=== PATIENT | male | born 1945 | race Caucasian/White ===

== ENCOUNTER 2018-06-04 10:37 | Outpatient (CLI) | payer MEDICARE | END 2018-06-04 10:38 | disposition home or self-care (01) | LOC: CTENTCT 10:37 | PROVIDERS: ATTEND Otolaryngology Plastic Surgery within the Head & Neck | DX: J34.2 Deviated nasal septum (principal) | CPT/HCPCS: 70486 ==

== ENCOUNTER 2018-07-22 06:56 | Inpatient (IN) | payer MEDICARE ==
[2018-07-22 07:13] LABS: #Basophils 0.1 thou/uL (0.0-0.2); #Eosinphils 0.3 thou/uL (0.0-0.7); #Lymphocytes 3.4 thou/uL (1.20-3.40); #Monocytes 0.6 thou/uL (0.11-0.59); %Basophils 1.3 % (0.0-1.0); %Eosinophils 3.3 % (0.0-10.0); %Lymphocytes 40.6 % (21.0-51.0); %Monocytes 6.8 % (0.0-10.0); Hemoglobin 16.5 g/dL (14.0-18.0); Mean Corpuscular Hemoglobin 30.3 pg (27.0-31.0); Mean Corpuscular Volume 89.1 fL (78.0-98.0); Mean Platelet Volume 6.7 fL (7.4-10.4); Platelet Count 200 thou/uL (130-400); RBC Distribution Width 11.7 % (11.5-14.5); Red Blood Cell (RBC) Count 5.45 mill/uL (4.70-6.10); White Blood Cell (WBC) Count 8.4 thou/uL (4.8-10.8)
[2018-07-22 07:24] LABS: ALT (SGPT) 14 U/L (8-55); AST (SGOT) 15 U/L (5-34); Albumin 4.2 g/dL (3.4-4.8); Alkaline Phosphatase 66 U/L (40-150); Anion Gap 14 mmol/L (10-20); BUN (Urea Nitrogen) 16 mg/dL (8.4-25.7); Bilirubin, Total 0.7 mg/dL (0.2-1.2); Calc. Creatinine Clearance 0 mL/min (70-130); Calcium 9.8 mg/dL (7.8-10.44); Carbon Dioxide 27 mmol/L (23-31); Chloride 106 mmol/L (98-107); Estimated GFR-MDRD 79; Globulin 2.8 g/dL (2.4-3.5); Glucose 117 mg/dL (83-110); Potassium 4.3 mmol/L (3.5-5.1); Sodium 143 mmol/L (136-145)
[2018-07-22] MEDS ORDERED: Aspirin 325 MG TAB ONE (07:37)
--- NOTE | 2018-07-22 07:49 | CT ---
CT BRAIN WITHOUT CONTRAST: Date: 07/22/18 HISTORY: Stroke protocol. Left-sided weakness. COMPARISON: None. FINDINGS: Old left basal ganglia lacunar infarction. No acute territorial infarct or hemorrhage. No midline tatiana ft or mass effect. Calvarium is intact. Paranasal sinuses and mastoids are clear. IMPRESSION: No acute intracranial abnormality. POS: SYED
--- NOTE | 2018-07-22 07:51 | CT ---
CT ANGIOGRAM HEAD WITH CONTRAST: Date: 07/22/18 HISTORY: Stroke protocol. COMPARISON: None. FINDINGS: CT angiogram of the head performed after the intravenous administration of contrast. 3D rendering pro vided. The [place] of [place] patent. No stenosis, thrombosis, nor aneurysm formation. There is normal variant left CATH LAB RADIOLOGY TECHNICIAN. IMPRESSION: No acute intracranial abnormality. No stenosis, thrombosis, nor aneurysm formation. POS: CARLA
[2018-07-22 07:57] LABS: Bilirubin Negative (Negative); Blood, Urine Trace (Negative); Clarity Clear (Clear); Glucose, Urine (Dipstick) Negative (Negative); Leukocyte Negative (Negative); Nitrite Negative (Negative); Protein, Urine (Dipstick) Negative (Neg-Trace); Urobilinogen 0.2 mg/dL (0.2-1.0)
[2018-07-22 08:02] LABS: Bacteria/HPF None Seen HPF (None Seen); Hyaline Casts/LPF NONE SEEN LPF (0-3 Hyaline); RBC/HPF 0-3 HPF (0-3); Squamous Epithelial None Seen HPF (0-3); WBC/HPF 0-3 HPF (0-3)
[2018-07-22] MEDS ORDERED: Ondansetron ODT 4 MG TAB PO PRN (10:04)
[2018-07-22] MEDS ORDERED: Ondansetron HCl/PF 4 MG/2 ML Vial IVP PRN ×2 (10:04→16:47)
[2018-07-22] MEDS ORDERED: Acetaminophen 325 MG TAB PO PRN ×2 (10:05→16:47)
[2018-07-22 10:29] VITALS: BMI 30.4
[2018-07-22] MEDS ORDERED: Prevnar 13-Val Conj/PF 0.5 ML SYRINGE IM ONE (11:15)
[2018-07-22] MEDS ORDERED: Enoxaparin Sodium 40 MG/0.4 ML SYRINGE SC SCH (16:47)
[2018-07-22] MEDS ORDERED: HYDROcodone/Acetaminophen 5/325 mg Tablet PO PRN ×2 (16:47)
[2018-07-22] MEDS ORDERED: Dextrose 5% in Water 1,000 ML IV PRN (16:47)
[2018-07-22] MEDS ORDERED: Dextrose 50% Abboject 50 ML SYRINGE SLOW IVP PRN (16:47)
[2018-07-22] MEDS ORDERED: HumaLOG 300 UNITS/3 ML VIAL SC PRN ×2 (16:47)
--- NOTE | 2018-07-22 17:47 | MRI ---
NONCONTRAST ENHANCED MRI IMAGES OF THE BRAIN 07/22/18 HISTORY: Right MCA distribution area stroke. Multiplanar and multisequence noncontrast enhanced MRI images of the brain obtained. Images demonstrate an area of increased T2 signal and diffusion restriction measuring 1.4 x 1.1 cm in the right thalamus extending into the posterior limb of the right internal capsule. This is compatib le with a small areas of right thalamic stroke. No other areas of significant diffusion restriction s een. Normal flow voids seen in the major intracranial vessels including the ICA, MCA, SHIVAM as well as verte brobasilar arteries and posterior cerebral vessels. Incidentally noted small right sided maxillary sinus mucosal thickening seen. IMPRESSION: Acute right thalamic and posterior limb internal capsule stroke. POS: SYED
[2018-07-22] MEDS: Labetalol HCl 100 MG/20 ML VIAL SLOW IVP PRN (18:33)
--- NOTE | 2018-07-22 20:20 | ULT ---
BILATERAL CAROTID DUPLEX ULTRASOUND: 07/22/18 HISTORY: Right middle cerebral artery infarct. Real time imaging of the right and left carotid system was performed. This shows plaque formation of the origin of both internal carotid arteries. On the right side, peak systolic velocity of the common carotid are 104 cm/s. Internal carotid veloci ties 134 cm/s. External carotid velocities of 113 cm/s. On the left side, peak systolic velocity of the common carotid are 107 cm/s. Internal carotid velocit ies 107 cm/s. External carotid velocities of 116 cm/s. Vertebral flow is antegrade bilaterally. IMPRESSION: 1. Peak systolic velocity measurements of the right internal carotid artery that would suggest 5 0 to 69% narrowing; however, diastolic velocity measurements and ratios all would suggest less than 5 0% narrowing. 2. No significant stenosis of the left internal carotid artery. POS: SYED
[2018-07-22] MEDS: Famotidine 20 MG TAB PO SCH (20:22)
[2018-07-22] MEDS: Atorvastatin Calcium 40 MG TAB PO SCH (20:22)
--- NOTE | 2018-07-23 05:13 | CON ---
DATE OF CONSULTATION: 07/22/2018 REFERRING PROVIDER: Dr. Cedric Brower. REASON FOR CONSULTATION: Left-sided numbness and weakness. HISTORY OF PRESENT ILLNESS: Mr. Duong is a pleasant 72-year-old male who has been considered for evaluation of left-sided numbness and weakness. The patient reports that this morning, he woke up at 6:30 a.m. and noticed sudden onset of numbness on his left upper and left lower extremity. He had gone to sleep at 11:00 last night without any symptoms. He initially thought the symptoms may be due to him sleeping well and trying to work him up, however, the symptoms continued to be present after awakening up for an hour or so, he decided to present to the [facility]. He reports that he has difficulty with lifting left arm, and feels heaviness in his left arm. He denies any headache, vision changes, diplopia, dysarthria, dysphagia, difficulty balance or walking. PAST MEDICAL HISTORY: Significant for hypertension, history of atrial fibrillation, hyperlipidemia. PAST SURGICAL HISTORY: Significant for herniated disk surgery and ablation. SOCIAL HISTORY: He drinks less than 5 drinks per day. He denies smoking. He denies illicit drug use. FAMILY HISTORY: Noncontributory. CURRENT MEDICATIONS: Please review MAR. ALLERGIES: Include CODEINE. REVIEW OF SYSTEMS: As mentioned above in HPI, otherwise negative. PHYSICAL EXAMINATION: VITAL SIGNS: Blood pressure of 185/83, pulse of 71, temperature of 97.5, respirations of 16, O2 sats 95% on room air. GENERAL: A well-developed, well-nourished male in no apparent distress. RESPIRATORY: Clear to auscultation bilaterally. CARDIOVASCULAR: Regular rate and rhythm. NEUROLOGIC: Mental status: The patient is awake, alert, oriented x3. Speech and language: Fluent speech. Cranial nerves: Pupils are 3 mm and reactive. Visual andujar are intact. Extraocular muscles are intact. No nystagmus noted. Face is symmetric. Tongue and uvula midline. Motor exam showed normal tone and bulk with a 5/5 strength in the right upper and lower extremity. There has 4+/5 strength in the left upper extremity and 5/5 strength in the left lower extremity. He has a pronator drift on the left upper extremity. Sensory: Diminished sensation in the left upper and left lower extremity to light touch. Deep tendon reflexes, brisk reflexes in both upper and lower extremities. Babinski: Plantar responses flexion on the right and equivocal on the left. Coordination intact to [id number] and finger tapping bilaterally. LABORATORY DATA: Reviewed, which included CBC, CMP, urinalysis which is all essentially normal. IMAGING STUDIES: MRI brain without contrast was reviewed, which showed small acute right thalamic ischemic infarct. CT angio of the head was reviewed, which showed no acute intracranial abnormality. Carotid Doppler results were reviewed, which showed hemodynamically significant stenosis on both sides. IMPRESSION: 1. Acute right thalamic ischemic infarct. 2. Left-sided numbness and weakness correlate to #1. 3. Malignant hypertension. PLAN: Mr. Duong is a pleasant 72-year-old male who presented with an acute onset of left-sided numbness and weakness. He is found to have small acute right thalamic ischemic infarct. This is likely secondary to poorly controlled blood pressure. At this time, I will recommend continuing PT, OT. I would recommend obtaining echocardiogram and lipid profile. I would recommend continuing on aspirin 325 mg daily for secondary stroke prevention. No further neurological workup needed from my standpoint. RONALDD
[2018-07-23 06:19] LABS: #Eosinphils 0.2 thou/uL (0.0-0.7); #Lymphocytes 1.6 thou/uL (1.20-3.40); #Monocytes 0.4 thou/uL (0.11-0.59); #Neutrophils 3.5 thou/uL (1.40-6.50); %Basophils 0.8 % (0.0-1.0); %Eosinophils 3.1 % (0.0-10.0); %Monocytes 7.2 % (0.0-10.0); Hemoglobin 14.6 g/dL (14.0-18.0); Mean Corpuscular HGB CONC 33.3 g/dL (32.0-36.0); Mean Corpuscular Hemoglobin 30.9 pg (27.0-31.0); Mean Corpuscular Volume 92.7 fL (78.0-98.0); Mean Platelet Volume 7.2 fL (7.4-10.4); Platelet Count 177 thou/uL (130-400); RBC Distribution Width 12.5 % (11.5-14.5); Red Blood Cell (RBC) Count 4.73 mill/uL (4.70-6.10); White Blood Cell (WBC) Count 5.7 thou/uL (4.8-10.8)
[2018-07-23 06:27] LABS: Anion Gap 11 mmol/L (10-20); BUN (Urea Nitrogen) 13 mg/dL (8.4-25.7); Calc. Creatinine Clearance 117 mL/min (70-130); Calcium 8.7 mg/dL (7.8-10.44); Carbon Dioxide 26 mmol/L (23-31); Chloride 107 mmol/L (98-107); Estimated GFR-MDRD Greater than 90; Glucose 101 mg/dL (83-110); Magnesium 1.8 mg/dL (1.6-2.6); Potassium 3.9 mmol/L (3.5-5.1); Sodium 140 mmol/L (136-145)
[2018-07-23] MEDS: Aspirin 325 MG TAB PO SCH (09:43)
[2018-07-23] MEDS: Famotidine 20 MG TAB PO SCH ×2 (09:44→21:35)
[2018-07-23] MEDS: Enoxaparin Sodium 40 MG/0.4 ML SYRINGE SC SCH (09:44)
[2018-07-23] MEDS ORDERED: Lisinopril 10 MG TAB PO SCH (14:30)
[2018-07-23] MEDS: Flecainide 50 MG TAB PO SCH (21:35)
[2018-07-23] MEDS: Atorvastatin Calcium 40 MG TAB PO SCH (21:35)
[2018-07-23] MEDS: Labetalol HCl 100 MG/20 ML VIAL SLOW IVP PRN (21:44)
[2018-07-24] MEDS: Famotidine 20 MG TAB PO SCH (08:34)
[2018-07-24] MEDS: Flecainide 50 MG TAB PO SCH (08:34)
[2018-07-24] MEDS: Aspirin 325 MG TAB PO SCH (08:34)
[2018-07-24] MEDS: Enoxaparin Sodium 40 MG/0.4 ML SYRINGE SC SCH (08:35)
[2018-07-24] MEDS ORDERED: Lisinopril 10 MG TAB PO SCH (09:00)
[2018-07-24] MEDS ORDERED: NIFEdipine XL 60 MG TAB PO SCH (09:45)
--- NOTE | 2018-07-24 11:14 | PDOC.PN ---
- Subjective Encounter Start Date: 07/23/18 Encounter Start Time: 11:30 - Objective Resuscitation Status: Resuscitation Status FULL:Full Resuscitation MAR Reviewed: Yes Vital Signs & Weight: Vital Signs (12 hours) Temp Pulse Resp BP BP BP Pulse Ox 07/24/18 10:00 160/75 H 07/24/18 08:34 154/66 H 07/24/18 07:56 97.4 F L 75 18 205/90 H 94 L 07/24/18 04:00 98.8 F 58 L 16 171/78 H 97 07/24/18 00:00 98.7 F 62 16 139/78 97 Weight Weight 224 lb I&O: 07/23/18 07/24/18 07/25/18 06:59 06:59 06:59 Intake Total 1710 Balance 1710 Result Diagrams: 07/23/18 05:34 07/23/18 05:34 Additional Labs: Accuchecks 07/24/18 07/24/18 07/23/18 10:20 05:38 20:41 POC Glucose 97 90 90 07/23/18 07/23/18 16:58 11:13 POC Glucose 94 89 Radiology Reviewed by me: Yes Phys Exam - Physical Examination Constitutional: NAD HEENT: PERRLA, moist MMs, sclera anicteric, oral pharynx no lesions Neck: no nodes, no JVD, supple, full ROM Respiratory: no wheezing, no rales, no rhonchi, clear to auscultation bilateral Cardiovascular: RRR, no significant murmur, no rub Gastrointestinal: soft, non-tender, no distention, positive bowel sounds Musculoskeletal: no edema, pulses present Neurological: non-focal, moves all 4 limbs left face, arm, leg and trunk numb Lymphatic: no nodes Psychiatric: normal affect, A&O x 3 Skin: no rash, normal turgor, cap refill <2 seconds Dx/Plan (1) Acute right arterial ischemic stroke, middle cerebral artery (MCA) Code(s): I63.511 - CEREB INFRC D/T UNSP OCCLS OR STENOS OF RIGHT MID CEREB ART Status: Acute (2) Left sided numbness Code(s): R20.0 - ANESTHESIA OF SKIN Status: Acute (3) HTN (hypertension) Code(s): I10 - ESSENTIAL (PRIMARY) HYPERTENSION Status: Chronic Qualifiers: Hypertension type: essential hypertension Qualified Code(s): I10 - Essential (primary) hypertension (4) Hypertensive urgency Code(s): I16.0 - HYPERTENSIVE URGENCY Status: Acute (5) HLD (hyperlipidemia) Code(s): E78.5 - HYPERLIPIDEMIA, UNSPECIFIED Status: Chronic Qualifiers: Hyperlipidemia type: unspecified Qualified Code(s): E78.5 - Hyperlipidemia , unspecified (6) GERD (gastroesophageal reflux disease) Code(s): K21.9 - GASTRO-ESOPHAGEAL REFLUX DISEASE WITHOUT ESOPHAGITIS Status: Chronic Qualifiers: Esophagitis presence: without esophagitis Qualified Code(s): K21.9 - Gastro -esophageal reflux disease without esophagitis - Plan cont current plan of care, plan discussed w/ family, PT/OT, speech therapy, out of bed/ambulate * .
[2018-07-24 11:35] VITALS: BP 164/84; TEMP 97.6
--- NOTE | 2018-07-24 11:40 | DIS ---
DATE OF ADMISSION: 07/22/2018 DATE OF DISCHARGE: 07/24/2018 PRIMARY CARE PHYSICIAN: Cristobal Arriola M.D. DISCHARGE DIAGNOSES: 1. Acute thrombotic ischemic stroke to the right internal capsule. 2. Hypertensive urgency. 3. Essential hypertension. 4. Hyperlipidemia. 5. Gastroesophageal reflux disease. 6. Left-sided numbness. CONSULTATIONS: Shelia Andino M.D. PROCEDURES: None. HISTORY AND PHYSICAL: Mr. Duong is a 72-year-old gentleman who woke up the morning of admission w ith left-sided face and body numbness. He presented to the emergency department for evaluation and h is workup was negative. We were called for admit. HOSPITAL COURSE: The patient was accepted by me and is seen and examined. He was started on high do se aspirin. MRI/MRA, echo and Neurology consultation ordered. PT, OT and ST saw him and felt he was appropriate for outpatient therapy. Had no swallowing difficulties. His blood pressure remained el evated and medicines were adjusted. Today, his blood pressure prior to morning medications did spike up to 205/90, but a repeat was 154/66. He was still in the 160s after morning meds and was started on nifedipine daily. Blood pressure remained stable. He is stable for discharge with outpatient [facility]. PHYSICAL EXAMINATION: The patient was seen and examined on the day of discharge. Discharge plan and disposition were discussed with the patient [id number] at the bedside with his w flora. DISCHARGE MEDICATIONS: New medications, 1. Aspirin 325 mg daily. 2. Atorvastatin 40 mg p.o. at bedtime. 3. Nifedipine 30 mg p.o. daily. Home medicines to continue, 1. Dexilant 60 mg p.o. daily. 2. Flecainide 50 mg p.o. b.i.d. 3. Lisinopril 10 mg daily. 4. Metoprolol succinate 25 mg p.o. daily. 5. Zoloft 100 mg daily. 6. Claritin-D 24-hour 1 tablet daily p.r.n. 7. Systane eyedrops as needed. Home medicines to discontinue, 1. Aspirin 81 mg daily. 2. Lipitor 10 mg daily. FOLLOWUP APPOINTMENTS: 1. With Dr. Cristobal Arriola next week. He has an appointment on Friday. 2. Dr. nAdino as needed. DISCHARGE CONDITION: Stable. DISPOSITION: Will be discharged home via private vehicle with outpatient physical therapy and occupa tional therapy. DISCHARGE DIET: Heart healthy recommended. DISCHARGE ACTIVITY: As tolerated.
--- NOTE | 2018-07-24 12:48 | HP ---
DATE OF ADMISSION: 07/22/2018 PRIMARY CARE PHYSICIAN: Cristobal Arriola M.D. TIME OF SERVICE: 1600. CHIEF COMPLAINT: Left-sided numbness. HISTORY OF PRESENT ILLNESS: Mr. Duong is a pleasant 72-year-old white male with a history of hype rtension, GERD, hyperlipidemia, and allergies, who was in normal state of health on the day of admiss ion. He awoke at 6:30. His left arm and leg and face were numb, but moving fine. His last known no rmal at 2300 the night before, came to the emergency department for evaluation. In the ER, he was given 325 mg of aspirin. He had a brain CT that was unremarkable. A CT angio of t he [place] of [place] that was normal, and we were subsequently called for admit. On my evaluation, the patient continues to have elevated blood pressure and continues to have left-si ded numbness, but no weakness. He denies any fever or chills. No chest pain or shortness of breath. No nausea or vomiting. No oth er current complaints. PAST MEDICAL HISTORY: 1. Hypertension, essential. 2. Hyperlipidemia. 3. GERD. 4. History of paroxysmal atrial fibrillation, status post ablation, on flecainide. PAST SURGICAL HISTORY: Herniated disk and atrial fibrillation ablation. SOCIAL HISTORY: Drinks 1-2 drinks a day. No tobacco or drug use. He is , monogamous. ALLERGIES: CODEINE and GLUTEN. FAMILY HISTORY: Negative for clotting or bleeding disorder. No immune dysfunction. No premature co ronary disease. REVIEW OF SYSTEMS: All systems reviewed and negative except as stated as per HPI. PHYSICAL EXAMINATION: VITAL SIGNS: Temperature on arrival to the emergency department 98.2, pulse 74, blood pressure 187/7 8, respiratory rate 18, satting 98% on room air. On arrival to the floor here at our facility, maureen rature is 98.0, blood pressure 203/85, pulse 71, respiratory 18, O2 sat 98% on room air. GENERAL: He is awake. He is alert. He is oriented x3. Well-developed, well-nourished male who chon ears to be age appropriate. He is in no distress. HEENT: Normocephalic, atraumatic. Pupils equal, round, reactive bilaterally. Mucous membranes are moist. No visible lesion. No thrush. NECK: Supple. There is no lymphadenopathy, JVD, or thyromegaly. He has normal carotid upstrokes wi thout bruits. LUNGS: Clear. No wheezes, no rales, no rhonchi. He has a normal expiratory phase. CARDIOVASCULAR: He has normal cardiac and regular. Normal S1 and S2. No audible murmurs. ABDOMEN: Soft, nontender, nondistended. No masses or organomegaly. No rebound, rigidity or guardin g. EXTREMITIES: No cyanosis or clubbing. No edema. SKIN: Warm, moist, and well perfused. He has no rashes or lesions. MUSCULOSKELETAL: Normal to inspection. Large joints appear normal. There is no evidence of inflamm ation or palpable effusion. NEUROLOGIC: Cranial nerves II-XII grossly intact with the exception of the trigeminal nerve distribu tion in his entire left side of his face, and left side of his body. Had decreased tactile sensation . LABORATORY DATA: Sodium 143, potassium 4.3, chloride 106, bicarbonate 27, BUN 16, creatinine 0.94, g lucose 117, and calcium of 9.8. Liver function completely within normal limits. CBC showed a white count of 8.4, hemoglobin 16.5, hematocrit of 48.6, and platelet count is 200,000. RADIOGRAPHIC STUDIES: As above. ASSESSMENT AND PLAN: 1. Right middle cerebral artery distribution stroke. Unsure if this is going to be cortical and sub cortical. We will continue aspirin 325 a day. We will increase his Lipitor to 40 mg at bedtime and get a fasting lipid profile and activated the stroke team. We will get an MRI/MRA, carotid ultrasoun d and echocardiogram. We will ask neurology for their input. PT, OT and ST consults have been order ed, but the patient swallow evaluation is normal. I will make him n.p.o. at this point. Radha preciado on heart healthy diet. We will continue rest of his home medications at present. 2. Hypertensive urgency: The patient's blood pressure in the 190s to 200s. We will continue his ho me medications p.r.n. labetalol as needed for systolic blood pressure greater than 170. If he continues to require, then we will adjust his medications.
[2018-07-25] MEDS ORDERED: NIFEdipine XL 60 MG TAB PO SCH (09:00)
== END 2018-07-24 13:53 | disposition home or self-care (01) | DRG 65 ==
LOC: SCSER 06:56 → 2SE 09:12
PROVIDERS: ADMIT Internal Medicine Infectious Disease; ATTEND Internal Medicine Infectious Disease
DX: I63.9 Cerebral infarction, unspecified (principal); G81.94 Hemiplegia, unspecified affecting left nondominant side; I10 Essential (primary) hypertension; I16.0 Hypertensive urgency; E78.5 Hyperlipidemia, unspecified; K21.9 Gastro-esophageal reflux disease without esophagitis; R20.0 Anesthesia of skin; Z79.899 Other long term (current) drug therapy; Z79.82 Long term (current) use of aspirin; I48.91 Unspecified atrial fibrillation; Z88.5 Allergy status to narcotic agent
CPT/HCPCS: 36415; 36416; 70450; 70496; 70551; 80048; 80053; 81003; 81015; 83735; 85025; 93005; 93306; 93880; G8978-GP-CK; G8979-GP-CI; G8987-GO-CJ; G8988-GO-CI; G8996-GN-CH; G8997-GN-CH; J1650